=== PATIENT | male | born 1995 | race African-American/Black ===

== ENCOUNTER 2016-12-27 17:19 | Emergency (ER) | payer SELFPAY ==
[~2016-12-27] VITALS: Ht 165.1 cm; Wt 65.0 kg
[~2016-12-27 17:19] MED LIST: IBUPROFEN
[2016-12-27 17:23] VITALS: BP 130/79
== END 2016-12-27 17:41 | disposition left against medical advice (07) ==
LOC: ER 17:32
DX: F12.180 Cannabis abuse with cannabis-induced anxiety disorder (principal); R25.9 Unspecified abnormal involuntary movements
CPT/HCPCS: 99283

== ENCOUNTER 2018-09-24 19:19 | Emergency (ER) | payer SELFPAY ==
[~2018-09-24] VITALS: Ht 175.3 cm; Wt 59.0 kg
[2018-09-24 22:28] VITALS: BP 125/80
[2018-09-24] MEDS ORDERED: IBUPROFEN 600MG TABLET PO ONE (22:30)
== END 2018-09-24 22:29 | disposition home or self-care (01) ==
LOC: ER 19:19
DX: S13.9XXA Sprain of joints and ligaments of unspecified parts of neck, initial encounter (principal); S43.401A Unspecified sprain of right shoulder joint, initial encounter; F17.210 Nicotine dependence, cigarettes, uncomplicated; F12.10 Cannabis abuse, uncomplicated; V43.52XA Car driver injured in collision with other type car in traffic accident, initial encounter; Y93.89 Activity, other specified; Y92.411 Interstate highway as the place of occurrence of the external cause
CPT/HCPCS: 99283

== ENCOUNTER 2021-03-02 04:11 | Emergency (ER) | payer BC, MEDICAID ==
[~2021-03-02] VITALS: Ht 172.7 cm; Wt 64.0 kg
[2021-03-02] MEDS ORDERED: KETOROLAC 60MG/2ML VIAL IM ONE (04:45)
[2021-03-02] MEDS ORDERED: CYCLOBENZAPRINE 10MG TABLET PO ONE (04:45)
[2021-03-02 05:12] VITALS: BP 126/85
[2021-03-02] MEDS ORDERED: CYCL5TAB MT (05:51)
[2021-03-02] MEDS ORDERED: IBUP-2030 MT (05:51)
== END 2021-03-02 06:29 | disposition home or self-care (01) ==
LOC: ER 04:11
DX: M54.50 Low back pain, unspecified (principal); F12.10 Cannabis abuse, uncomplicated
CPT/HCPCS: 72070; 72100; 96372; 99284; J1885

== ENCOUNTER 2021-04-26 12:41 | Emergency (ER) | payer BC, MEDICAID ==
[~2021-04-26] VITALS: Ht 170.2 cm; Wt 63.0 kg
[~2021-04-26 12:41] MED LIST changes: +CYCL5TAB MT; +IBUP-2030 MT
[2021-04-26] MEDS ORDERED: CEFTRIAXONE SODIUM 500 MG/VIAL IM ONE (13:00)
[2021-04-26] MEDS ORDERED: DOXYCYCLINE HYCLATE 100MG CAPSULE PO ONE (13:00)
[2021-04-26 15:17] VITALS: BP 154/98
[2021-04-26 15:59] LABS: CLARITY URINE CLEAR (CLEAR); COLOR URINE YELLOW (YELLOW); KETONES URINE NEGATIVE (NEGATIVE); LEUKOCYTE ESTERASE URINE 2+ (NEGATIVE); NITRITE URINE NEGATIVE (NEGATIVE); OCCULT BLOOD URINE NEGATIVE (NEGATIVE); PROTEIN URINE NEGATIVE (NEGATIVE); SPECIFIC GRAVITY URINE 1.018 (1.005-1.030); UROBILINOGEN URINE 0.2 E.U./dL (0.2-1.0)
[2021-04-26] MEDS ORDERED: DOXY100C5 MT (16:10)
[2021-04-30 04:07] LABS: NEISSERIA GONORRHOEAE NAA Positive (Negative)
== END 2021-04-26 16:33 | disposition home or self-care (01) ==
LOC: ER 12:41
DX: R30.0 Dysuria (principal); R36.9 Urethral discharge, unspecified; Z20.2 Contact with and (suspected) exposure to infections with a predominantly sexual mode of transmission; F12.90 Cannabis use, unspecified, uncomplicated
CPT/HCPCS: 81003; 87086; 87491; 87591; 96372; 99283; J0696

== ENCOUNTER 2021-07-12 20:24 | Emergency (ER) | payer BC, MEDICAID ==
[~2021-07-12] VITALS: Ht 172.7 cm; Wt 61.0 kg
[~2021-07-12 20:24] MED LIST changes: +DOXY100C5 MT
[2021-07-12 20:43] VITALS: BP 122/80
[2021-07-12] MEDS ORDERED: HYDROCODONE/ACETAMINOPHEN 5/325MG TABLET PO ONE (22:30)
[2021-07-12] MEDS ORDERED: TETANUS, DIPHTHERIA, PERTUSSIS VAC/PF 0.5ML (>10YR OLD) IM ONE (22:30)
[2021-07-12] MEDS ORDERED: BACITRACIN ZINC OINT UDPKT TOP ONE (22:30)
[2021-07-12] MEDS ORDERED: ONDANSETRON 4MG ODT PO ONE (22:30)
[2021-07-12] MEDS ORDERED: AMOXICILLIN/POTASSIUM CLAVULANATE 875/125MG TAB PO ONE (22:30)
[2021-07-12] MEDS ORDERED: AMOX-424 MT (23:10)
[2021-07-12] MEDS ORDERED: IBUP-2029 MT (23:10)
[2021-07-12] MEDS ORDERED: HYDR-4001 MT (23:10)
== END 2021-07-12 23:51 | disposition home or self-care (01) ==
LOC: ER 20:42
DX: S60.221A Contusion of right hand, initial encounter (principal); S00.81XA Abrasion of other part of head, initial encounter; Y04.1XXA Assault by human bite, initial encounter; Y04.0XXA Assault by unarmed brawl or fight, initial encounter; I10 Essential (primary) hypertension; Y93.89 Activity, other specified; Y92.411 Interstate highway as the place of occurrence of the external cause
CPT/HCPCS: 29125; 73130; 90471; 90715; 99284; Q0162

== ENCOUNTER 2022-10-05 05:28 | Emergency (ER) | payer BC, MEDICAID ==
[~2022-10-05] VITALS: Ht 170.2 cm; Wt 62.0 kg
[~2022-10-05 05:28] MED LIST changes: +AMOX-424 MT; +HYDR-4001 MT; +IBUP-2029 MT
[2022-10-05 05:39] VITALS: BP 129/80
[2022-10-05] MEDS ORDERED: DOXYCYCLINE HYCLATE 100MG CAPSULE PO ONE (06:00)
[2022-10-05] MEDS ORDERED: CEFTRIAXONE SODIUM 1 G/VIAL IM ONE (06:00)
[2022-10-05] MEDS ORDERED: DOXY100T2 PO (06:07)
[2022-10-05 07:14] LABS: CLARITY URINE CLEAR (CLEAR); COLOR URINE YELLOW (YELLOW); KETONES URINE NEGATIVE (NEGATIVE); LEUKOCYTE ESTERASE URINE TRACE (NEGATIVE); NITRITE URINE NEGATIVE (NEGATIVE); OCCULT BLOOD URINE NEGATIVE (NEGATIVE); PH URINE 5.5 (4.5-8.0); PROTEIN URINE NEGATIVE (NEGATIVE); SPECIFIC GRAVITY URINE 1.016 (1.005-1.030); UROBILINOGEN URINE 0.2 E.U./dL (0.2-1.0)
[2022-10-07 05:11] LABS: NEISSERIA GONORRHOEAE NAA Negative (Negative)
== END 2022-10-05 06:42 | disposition home or self-care (01) ==
LOC: ER 05:28
DX: A64 Unspecified sexually transmitted disease (principal)
CPT/HCPCS: 81003; 87491; 87591; 96372; 99283; J0696; Z7610

== ENCOUNTER 2023-07-14 14:10 | Emergency (ER) | payer MEDICAID ==
[~2023-07-14] VITALS: Ht 170.2 cm; Wt 60.0 kg
[~2023-07-14 14:10] MED LIST changes: +DOXY100T2 PO
[2023-07-14 14:26] VITALS: BP 127/81; PULSE 63; RESP 16; TEMP 98.2; O2SAT 100
[2023-07-14 15:06] LABS: CLARITY URINE CLEAR (CLEAR); COLOR URINE YELLOW (YELLOW); GLUCOSE URINE NEGATIVE (NEGATIVE); KETONES URINE NEGATIVE (NEGATIVE); LEUKOCYTE ESTERASE URINE NEGATIVE (NEGATIVE); NITRITE URINE NEGATIVE (NEGATIVE); OCCULT BLOOD URINE NEGATIVE (NEGATIVE); PROTEIN URINE NEGATIVE (NEGATIVE); SPECIFIC GRAVITY URINE 1.006 (1.005-1.030); UROBILINOGEN URINE 0.2 E.U./dL (0.2-1.0)
[2023-07-14] MEDS: CEFTRIAXONE SODIUM 500MG VIAL IM ONE (15:15)
[2023-07-14] MEDS ORDERED: DOXY100C5 MT (15:45)
== END 2023-07-14 16:32 | disposition home or self-care (01) ==
LOC: ER 14:10
DX: Z20.2 Contact with and (suspected) exposure to infections with a predominantly sexual mode of transmission (principal)
CPT/HCPCS: 99283; 87491; 87591; 81003; 96372; J0696